=== PATIENT | male | born 1960 | race Caucasian/White ===

== ENCOUNTER 2018-10-17 09:14 | Emergency (ER) | payer MEDICARE | END 2018-10-17 09:52 | disposition home or self-care (01) | LOC: MADERS 09:14 | DX: L03.114 Cellulitis of left upper limb (principal); E11.9 Type 2 diabetes mellitus without complications; E66.9 Obesity, unspecified | CPT/HCPCS: 99283 ==

== ENCOUNTER 2022-07-24 13:03 | Emergency (ER) | payer MEDICARE, OTHER ==
[2022-07-24] MEDS ORDERED: Sodium Chloride 0.9% 500 ML ONE ×2 (14:08→14:31)
[2022-07-24 14:24] LABS: ALT (SGPT) 99 U/L (8-55); AST (SGOT) 54 U/L (5-34); Albumin 3.6 g/dL (3.5-5.0); Alkaline Phosphatase 79 U/L (40-110); Anion Gap 14 mmol/L (10-20); BUN (Urea Nitrogen) 37 mg/dL (8.4-25.7); Bilirubin, Total 3.2 mg/dL (0.2-1.2); CK (CPK) 67 U/L (30-200); Calc. Creatinine Clearance 0 mL/min (70-130); Calcium 9.3 mg/dL (7.8-10.44); Carbon Dioxide 23 mmol/L (22-29); Chloride 103 mmol/L (98-107); Estimated GFR 50; Globulin 3.1 g/dL (2.4-3.5); Glucose 118 mg/dL (70-105); Lipase 598 U/L (8-78); Magnesium 2.2 mg/dL (1.6-2.6); Potassium 3.8 mmol/L (3.5-5.1); Protein, Total 6.7 g/dL (6.0-8.3); Sodium 136 mmol/L (136-145)
[2022-07-24 14:26] LABS: Anisocytosis SLIGHT = 6-15 cells (100X) (0-5/hpf); Band 29 % (5-11); Hemoglobin 13.7 g/dL (14.0-18.0); Lymphocytes 3 % (21-51); MDiff Complete? YES; Mean Corpuscular HGB CONC 31.7 g/dL (32.0-36.0); Mean Corpuscular Hemoglobin 28.6 pg (27.0-31.0); Mean Platelet Volume 9.4 fL (7.4-10.4); Monocytes 4 % (0-10); Neutrophil 63 % (42-75); Platelet Count 203 10x3/uL (130-400); Platelet Morphology Comment Appears Adequate; RBC Distribution Width 13.7 % (11.5-14.5); Reactive Lymphocytes 1 % (0-10); Red Blood Cell (RBC) Count 4.81 mill/uL (4.70-6.10); White Blood Cell (WBC) Count 13.8 10x3/uL (4.8-10.8)
[2022-07-24 14:52] LABS: SARS-CoV-2 NAA Rapid Test Not Detected (NotDetected)
[2022-07-24] MEDS ORDERED: Piperacillin/Tazobactam 4.5 GM VIAL ONE (15:20)
[2022-07-24] MEDS ORDERED: Sodium Chloride 0.9% 100 ML ONE (15:20)
[2022-07-24] MEDS ORDERED: Sodium Chloride 0.9% 1,000 ML ONE (16:04)
[2022-07-24] MEDS ORDERED: Sodium Chloride 0.9% 250 ML 250 ML ONE (17:05)
[2022-07-24] MEDS ORDERED: Acetaminophen 500 MG TAB ONE (18:23)
== END 2022-07-24 18:33 | disposition short-term general hospital (02) ==
LOC: MADERS 13:03
DX: A41.9 Sepsis, unspecified organism (principal); K85.90 Acute pancreatitis without necrosis or infection, unspecified; K80.20 Calculus of gallbladder without cholecystitis without obstruction; N28.89 Other specified disorders of kidney and ureter; E11.9 Type 2 diabetes mellitus without complications; I10 Essential (primary) hypertension; E78.00 Pure hypercholesterolemia, unspecified; Z79.899 Other long term (current) drug therapy; Z20.822 Contact with and (suspected) exposure to COVID-19
CPT/HCPCS: 71045; 74177; 80053; 82550; 83605; 83690; 83735; 83880; 84484; 85025; 87040; 93005; 96360; 96365; J2543; J3490; J7030; J7050

== ENCOUNTER 2022-08-05 16:27 | Inpatient (IN) | payer OTHER ==
[2022-08-05 17:01] VITALS: BMI 21.6
[2022-08-05] MEDS ORDERED: traMADol HCl 50 MG TAB PO PRN (19:20)
[2022-08-05] MEDS ORDERED: Acetaminophen 325 MG TAB PO PRN (19:23)
[2022-08-05] MEDS ORDERED: Ondansetron ODT 4 MG TAB PO PRN (19:23)
[2022-08-06] MEDS ORDERED: LAMOTRIGINE 100 MG PO SCH (09:00)
[2022-08-06] MEDS: Furosemide 40 MG TAB PO SCH (10:09)
[2022-08-06] MEDS: lamoTRIgine 25 MG TAB PO SCH (10:09)
[2022-08-06] MEDS: Fenofibrate Nanocrystallized 145 MG TAB PO SCH (10:09)
[2022-08-06] MEDS: metFORMIN XR 500 MG TAB PO SCH (16:39)
[2022-08-07] MEDS: Furosemide 40 MG TAB PO SCH (08:54)
[2022-08-07] MEDS: Fenofibrate Nanocrystallized 145 MG TAB PO SCH (08:54)
[2022-08-07] MEDS: lamoTRIgine 25 MG TAB PO SCH (08:54)
[2022-08-07] MEDS: metFORMIN XR 500 MG TAB PO SCH (16:59)
[2022-08-08] MEDS: lamoTRIgine 25 MG TAB PO SCH (08:28)
[2022-08-08] MEDS: Furosemide 40 MG TAB PO SCH (08:28)
[2022-08-08] MEDS: Fenofibrate Nanocrystallized 145 MG TAB PO SCH (08:29)
[2022-08-08] MEDS: metFORMIN XR 500 MG TAB PO SCH (17:07)
[2022-08-09] MEDS: Fenofibrate Nanocrystallized 145 MG TAB PO SCH (09:59)
[2022-08-09] MEDS: Furosemide 40 MG TAB PO SCH (09:59)
[2022-08-09] MEDS: lamoTRIgine 25 MG TAB PO SCH (09:59)
[2022-08-09] MEDS: metFORMIN XR 500 MG TAB PO SCH (17:11)
[2022-08-10] MEDS: lamoTRIgine 25 MG TAB PO SCH (09:17)
[2022-08-10] MEDS: Furosemide 40 MG TAB PO SCH (09:17)
[2022-08-10] MEDS: Fenofibrate Nanocrystallized 145 MG TAB PO SCH (09:17)
[2022-08-10] MEDS: metFORMIN XR 500 MG TAB PO SCH (17:17)
[2022-08-11] MEDS: Furosemide 40 MG TAB PO SCH (08:07)
[2022-08-11] MEDS: Fenofibrate Nanocrystallized 145 MG TAB PO SCH (08:07)
[2022-08-11] MEDS: lamoTRIgine 25 MG TAB PO SCH (08:09)
[2022-08-11] MEDS: metFORMIN XR 500 MG TAB PO SCH (17:08)
[2022-08-12] MEDS: lamoTRIgine 25 MG TAB PO SCH (08:58)
[2022-08-12] MEDS: Furosemide 40 MG TAB PO SCH (08:58)
[2022-08-12] MEDS: Fenofibrate Nanocrystallized 145 MG TAB PO SCH (08:58)
[2022-08-12] MEDS: metFORMIN XR 500 MG TAB PO SCH (17:23)
[2022-08-13 08:22] LABS: #Basophils 0.1 thou/uL (0.0-0.2); #Eosinphils 0.2 thou/uL (0.0-0.7); #Lymphocytes 1.6 thou/uL (1.20-3.40); #Monocytes 0.9 thou/uL (0.11-0.59); #Neutrophils 5.6 thou/uL (1.40-6.50); %Eosinophils 2.3 % (0.0-10.0); %Lymphocytes 19.3 % (21.0-51.0); %Monocytes 10.3 % (0.0-10.0); %Neutrophils 67.1 % (42.0-75.0); Hemoglobin 11.2 g/dL (14.0-18.0); Mean Corpuscular HGB CONC 32.2 g/dL (32.0-36.0); Mean Corpuscular Hemoglobin 28.1 pg (27.0-31.0); Mean Corpuscular Volume 87.2 fl (78.0-98.0); Mean Platelet Volume 7.4 fL (7.4-10.4); Platelet Count 487 10x3/uL (130-400); RBC Distribution Width 13.7 % (11.5-14.5); Red Blood Cell (RBC) Count 3.98 mill/uL (4.70-6.10); White Blood Cell (WBC) Count 8.3 10x3/uL (4.8-10.8)
[2022-08-13 08:23] LABS: Anion Gap 14 mmol/L (10-20); BUN (Urea Nitrogen) 27 mg/dL (8.4-25.7); Calc. Creatinine Clearance 86 mL/min (70-130); Calcium 9.2 mg/dL (7.8-10.44); Carbon Dioxide 26 mmol/L (22-29); Chloride 103 mmol/L (98-107); Estimated GFR 95; Glucose 100 mg/dL (70-105); Potassium 4.1 mmol/L (3.5-5.1); Sodium 139 mmol/L (136-145)
[2022-08-13] MEDS: lamoTRIgine 25 MG TAB PO SCH (08:36)
[2022-08-13] MEDS: Furosemide 40 MG TAB PO SCH (08:36)
[2022-08-13] MEDS: Fenofibrate Nanocrystallized 145 MG TAB PO SCH (08:36)
[2022-08-13] MEDS: metFORMIN XR 500 MG TAB PO SCH (17:20)
[2022-08-14] MEDS: Furosemide 40 MG TAB PO SCH (08:49)
[2022-08-14] MEDS: Ferrous Sulfate 325 MG TAB PO SCH (08:49)
[2022-08-14] MEDS: Fenofibrate Nanocrystallized 145 MG TAB PO SCH (08:49)
[2022-08-14] MEDS: lamoTRIgine 25 MG TAB PO SCH (08:49)
[2022-08-14] MEDS: metFORMIN XR 500 MG TAB PO SCH (17:36)
[2022-08-15] MEDS: lamoTRIgine 25 MG TAB PO SCH (09:22)
[2022-08-15] MEDS: Furosemide 40 MG TAB PO SCH (09:23)
[2022-08-15] MEDS: Fenofibrate Nanocrystallized 145 MG TAB PO SCH (09:23)
[2022-08-15] MEDS: Ferrous Sulfate 325 MG TAB PO SCH (09:23)
[2022-08-15] MEDS: metFORMIN XR 500 MG TAB PO SCH (17:15)
[2022-08-16 08:39] VITALS: BP 124/67; TEMP 98.7
[2022-08-16] MEDS: lamoTRIgine 25 MG TAB PO SCH (08:41)
[2022-08-16] MEDS: Fenofibrate Nanocrystallized 145 MG TAB PO SCH (08:41)
[2022-08-16] MEDS: Ferrous Sulfate 325 MG TAB PO SCH (08:41)
[2022-08-16] MEDS: Furosemide 40 MG TAB PO SCH (08:42)
== END 2022-08-16 13:10 | disposition home health service (06) | DRG 948 ==
LOC: MADMS 16:35
PROVIDERS: ADMIT Emergency Medicine; ATTEND Emergency Medicine
DX: R53.81 Other malaise (principal); I50.32 Chronic diastolic (congestive) heart failure; E11.9 Type 2 diabetes mellitus without complications; E78.5 Hyperlipidemia, unspecified; G40.909 Epilepsy, unspecified, not intractable, without status epilepticus; F79 Unspecified intellectual disabilities; Z79.84 Long term (current) use of oral hypoglycemic drugs; Z90.49 Acquired absence of other specified parts of digestive tract; Z79.899 Other long term (current) drug therapy
CPT/HCPCS: 36416; 80048; 85025; 36415-59; J1650